=== PATIENT | female | born 1970 | race Hispanic/Latino ===

== ENCOUNTER → 2017-03-18 | Outpatient (CLI) | payer OTHER ==
--- NOTE | 2017-03-18 15:27 | REP ---
MAXILLOFACIAL CT WITHOUT CONTRAST: HISTORY: Chronic pansinusitis. The sinuses are clear. The ostiomeatal units are patent. The middle and inferior nasal turbinates are partially paradoxical. There is minimal deviation of the nasal septum to the right. The cribriform plate, medial marlow of the orbits and optic canals are intact. The carotid canals form a segment of the posterolateral marlow of the sphenoid sinus. Soft tissue densities are present in the nasal passage consistent with polyps. IMPRESSION: 1. There is no acute or chronic sinusitis. 2. There is soft tissue densities in the nasal passage consistent with polyps. Signed by Sylvester Mcdermott MD 03/18/2017 03:33 P
== END ==
LOC: M RAD 14:44
PROVIDERS: ATTEND Otolaryngology
DX: J32.4 Chronic pansinusitis (principal); J33.8 Other polyp of sinus

== ENCOUNTER → 2018-09-30 | Outpatient (CLI) | payer OTHER ==
--- NOTE | 2018-09-30 17:17 | REP ---
Supine abdomen single AP view: There are no comparisons. The bowel gas pattern is normal. There is a single calcification in the pelvis inferolaterally on the left, nonspecific, phlebolith versus ureteral. The skeletal soft tissue structures otherwise unremarkable. Impression: Normal bowel gas pattern. Phlebolith versus distal ureteral calculus in the pelvis on the left. Electronically Signed by Mykel Rodriguez MD 09/30/2018 05:09 P
== END ==
LOC: M LRY 16:39
PROVIDERS: ATTEND Nurse Practitioner Family
DX: R10.32 Left lower quadrant pain (principal)